=== PATIENT | female | born 1980 | race Caucasian/White ===

== ENCOUNTER → 2018-04-28 | Outpatient (REF) | payer OTHER ==
[2018-04-28 18:03] LABS: COMPLEMENT C3 145 MG/DL (90-180); COMPLEMENT C4 34.5 MG/DL (10-40)
[2018-04-28 18:11] LABS: CREATININE,RANDOM URINE 98.7 MG/DL
[2018-04-28 18:11] LABS: TOTAL PROTEIN,RANDOM URINE 17.1 MG/DL (0.0-12.0)
[2018-04-29 10:41] LABS: HEPATITIS B SURFACE ANTIGEN NEGATIVE (NEGATIVE)
[2018-04-29 10:59] LABS: HIV 1&2 SCREEN CENTAUR NEGATIVE (NEGATIVE)
[2018-04-29 10:59] LABS: HEPATITIS C VIRUS ABY INDEX 0.1 INDEX (<0.8)
[2018-04-29 11:57] LABS: HEPATITIS B SURFACE ANTIBODY NEGATIVE (POSITIVE)
[2018-05-05 00:20] LABS: ANCA-ATYPICAL <1:20 titer (Neg:<1:20); ANTI DOUBLE STRAND-DNA AB 2 IU/mL (0-9); ANTINUCLEAR ANTIBODIES DIRECT Negative (Negative); CYTOPLASMIC NEUTROP AB ANCA-C <1:20 titer (Neg:<1:20); PERINUCLEAR AB ANCA-P <1:20 titer (Neg:<1:20)
== END ==
LOC: M LAB REF 16:59
DX: R80.9 Proteinuria, unspecified (principal)

== ENCOUNTER 2019-08-07 06:34 | Day surgery (SDC) | payer OTHER ==
[~2019-08-07] VITALS: Ht 160 cm; Wt 79.8 kg
[~2019-08-07 06:34] MED LIST: /LOR25TA PO; AMBI12.52 PO; AMIT8CAP PO; BACL10TA2 PO; BACLOFEN PO; BENA25CA4 PO; DIFL50TA PO; DIPH50CA PO; FLUO40CA PO; GABA-845 PO; IBUPROFEN PO; KLON2TAB PO; ONDA-227 PO; OXYC1TAB23 PO; PROZ40CA PO; ROBA750T4 PO; SENN8.6T17 PO; SERO1TAB PO; SING10TA32 PO; SING5CHW PO; SUBO8MIS SL; TIZA4CAP6 PO; TOPA100T12 PO; TRAZ50TA2 PO; TRIC145T19 PO; ULTR50TA PO; WELL200T PO; Z-PAK PO; ZOFR8TAB24 PO; [UNRECOGNIZED DRUG - CODE] PO; [UNRECOGNIZED DRUG - CODE] PO
[2019-08-07] MEDS ORDERED: METHYLENE BLUE 0.5% (5MG/ML) 10 ML AMP (PROVAYBLUE)(Q9968 PER 1MG) As Ordered ONE (06:53)
[2019-08-07] MEDS ORDERED: LIDOCAINE W/EPINEPHRINE 1% 20ML VIAL As Ordered ONE (06:53)
[2019-08-07] MEDS ORDERED: EPINEPHrine 1MG/ML INJ 30ML MD-VIAL As Ordered ONE (06:53)
[2019-08-07] MEDS ORDERED: LR 1,000 ML IV ONE (07:00)
[2019-08-07] MEDS ORDERED: LACRILUBE (AKWA TEARS) OPHTH OINT 3.5 GM As Ordered ONE (08:21)
[2019-08-07] MEDS ORDERED: dexameTHASONE 4 MG/ML 1ML VIAL (J1100) As Ordered ONE (08:45)
[2019-08-07] MEDS ORDERED: ROCURONIUM BROMIDE 50 MG/5 ML VIAL As Ordered ONE (08:45)
[2019-08-07] MEDS ORDERED: PROPOFOL 200 MG/20 ML VIAL As Ordered ONE (08:45)
[2019-08-07] MEDS ORDERED: MIDAZOLAM INJ 2 MG/2 ML VIAL (J2250) As Ordered ONE (08:45)
[2019-08-07] MEDS ORDERED: ONDANSETRON 4MG/2ML VIAL (J2405) As Ordered ONE (08:45)
[2019-08-07] MEDS ORDERED: LIDOCAINE 2% INJ 100 MG/5 ML SDV (FOR ANES.) As Ordered ONE (08:45)
[2019-08-07] MEDS ORDERED: fentaNYL 100 MCG/2 ML INJECTION (J3010) As Ordered ONE ×2 (08:45→08:48)
[2019-08-07] MEDS ORDERED: SUGAMMADEX SODIUM 500 MG/5 ML VIAL (BRIDION) As Ordered ONE (09:02)
[2019-08-07] MEDS ORDERED: PERCOCET 5MG/325MG TAB As Ordered ONE (10:02)
[2019-08-07] MEDS: PERCOCET 5MG/325MG TAB PO PRN ×2 (10:03→11:03)
[2019-08-07] MEDS ORDERED: LR 1,000 ML IV SCH ×3 (10:15→14:00)
[2019-08-07] MEDS ORDERED: ONDANSETRON 4MG/2ML VIAL (J2405) IV PRN ×2 (10:15→13:00)
[2019-08-07] MEDS ORDERED: fentaNYL 100 MCG/2 ML INJECTION (J3010) IV PRN ×2 (10:15→13:00)
[2019-08-07] MEDS ORDERED: LEVALBUTEROL 1.25 MG/0.5 ML CONCENTRATE NEB As Ordered ONE (11:00)
[2019-08-07 12:50] VITALS: BP 137/88
[2019-08-07] MEDS ORDERED: PERCOCET 5MG/325MG TAB PO PRN (13:00)
[2019-08-07] MEDS ORDERED: LEVALBUTEROL 1.25 MG/0.5 ML CONCENTRATE NEB INH ONE (14:00)
--- NOTE | 2019-08-07 15:26 | RO ---
DATE OF PROCEDURE: 08/07/2019 PREOPERATIVE DIAGNOSES: Recurrent sinusitis. Septal deformity. POSTOPERATIVE DIAGNOSES: Recurrent sinusitis. Septal deformity. OPERATIVE PROCEDURE: Septoplasty, left intranasal antrostomy. SURGEON: Eleuterio Lovelace MD BASTING PULLER: ANESTHESIA: Under general anesthesia with the patient intubated, the patient was prepped and draped in the usual manner. I used pledgets of adrenaline 1:1000. I infiltrated with lidocaine and epinephrine. I started by making an incision anterior on the left side, elevated subperichondrial and periosteal plane. I the quadrangular cartilage from the maxillary crest and ethmoid plate, then removed portions of the vomer and maxillary crest which were deviated. Once this was done the septum was straight and incision closed with #4-0 chromic sutures. I went between the middle turbinate and lateral nasal wall on the left side. Using the microdebrider I removed the lateral portion of the middle turbinate. Identified the uncinate process, removed that, identified the natural sinus osteum and enlarged that with forceps and a microdebrider. The patient tolerated the procedure well. Less than 10 mL of estimated blood loss. A PROPEL implant stent was placed in the osteomeatal complex area on the left side. The patient was extubated and transferred to the recovery room in excellent condition.
== END 2019-08-07 13:00 | disposition home or self-care (01) ==
LOC: M SDC 06:34
PROVIDERS: ATTEND Otolaryngology
DX: J32.9 Chronic sinusitis, unspecified (principal); J34.2 Deviated nasal septum; K21.9 Gastro-esophageal reflux disease without esophagitis; M79.7 Fibromyalgia; F41.9 Anxiety disorder, unspecified; J45.909 Unspecified asthma, uncomplicated; G43.909 Migraine, unspecified, not intractable, without status migrainosus; F31.9 Bipolar disorder, unspecified; F17.218 Nicotine dependence, cigarettes, with other nicotine-induced disorders; Z79.899 Other long term (current) drug therapy; Z88.5 Allergy status to narcotic agent; Z88.8 Allergy status to other drugs, medicaments and biological substances
CPT/HCPCS: 30520; 31267; C2625; J1100; J2250; J2405; J3010; Q9968

== ENCOUNTER → 2022-02-09 | Outpatient (REF) ==
[~2022-02-09] MED LIST changes: +GABA-283 PO; -GABA-845 PO
== END ==
LOC: M PLAIMG 13:09
PROVIDERS: ATTEND Internal Medicine
DX: Z00.00 Encounter for general adult medical examination without abnormal findings (principal)

== ENCOUNTER → 2024-09-19 | Outpatient (REF) ==
[~2024-09-19] MED LIST changes: -GABA-283 PO; +GABA-284 PO; +MONT-5 PO; -SING10TA32 PO; +TIZA4CAP3 PO; -TIZA4CAP6 PO
== END ==
LOC: M PLAIMG 12:58 → M PLALAB 12:58
PROVIDERS: ATTEND Internal Medicine
DX: R52 Pain, unspecified (principal)